=== PATIENT | female | born 1955 | race Caucasian/White ===

== ENCOUNTER 2017-07-17 10:38 | Outpatient (CLI) | payer BC | END 2017-07-17 10:39 | disposition home or self-care (01) | LOC: BICMRI 10:38 | PROVIDERS: ATTEND Anesthesiology Pain Medicine | DX: M54.81 Occipital neuralgia (principal); M46.92 Unspecified inflammatory spondylopathy, cervical region; M48.02 Spinal stenosis, cervical region; M99.81 Other biomechanical lesions of cervical region; Z98.890 Other specified postprocedural states | CPT/HCPCS: 72052 ==

== ENCOUNTER → 2017-07-17 | Outpatient (CLI) | payer BC | LOC: BICMRI 16:29 | PROVIDERS: ATTEND Anesthesiology Pain Medicine | DX: M54.81 Occipital neuralgia (principal); M99.81 Other biomechanical lesions of cervical region | CPT/HCPCS: 72141 ==

== ENCOUNTER 2019-01-11 09:16 | Outpatient (CLI) | payer BC ==
--- NOTE | 2019-01-11 11:15 | MRI ---
MRI cervical spine noncontrast: DATE: 01/11/2019 HISTORY: 63-year-old female with "M 48.02, foraminal stenosis of cervical region". Cervicalgia. COMPARISON: MRI of 07/17/2017. FINDINGS: Cervical spinal cord is normal in size and signal. No syringohydromyelia. No Chiari I malformation. N o major subluxation in cervical spine. C1-2: No high-grade central stenosis. C2-3: Normal disc space. Ankylosis of left facet joint. No DJD in right facet joint, questionable par tial ankylosis. No central stenosis or high-grade neural foraminal stenosis. C3-4: Anterior metallic plate and screws (ACDF hardware). Ankylosis of disc space. No high-grade DJD right facet joint. Ankylosis of left facet joint. Mild central spinal canal stenosis. No right neural foraminal stenosis. Mild to moderate left neural foraminal stenosis.. This left neural foramin al stenosis due to mild left uncinate process osteophytes, appears to be greater than on previous MRI. C4-5: Metallic artificial disc. Mild bilateral facet DJD. No high-grade central stenosis. No right ne ural foraminal stenosis. Mild left neural foraminal stenosis. C5-6: Metallic artificial disc. Moderate-sized bilateral uncinate processes encroach upon bilateral n eural foramina, causing bilateral moderate neural foraminal stenosis. No high-grade central stenosis. C6-7: Metallic artificial disc. Mild bilateral facet DJD. No high-grade central spinal canal stenosis . No high-grade neural foraminal stenosis despite small bilateral uncinate process osteophytes. C7-T1: Mild to moderate right facet DJD. Moderate left facet DJD. No central stenosis. No significant neural foraminal stenosis. T1-2: Imaged only on sagittal sequences. Small central disc protrusion. No high-grade central or high -grade neural foraminal stenosis. Mild to moderate bilateral facet DJD. Disc space maintained. T2-3: Imaged only on sagittal sequences. Incomplete segmentation, with partial ankylosis across disc space. Ankylosis of spinous processes and facet joints bilaterally. No high-grade central stenosis. At least some bilateral bony neural foraminal stenosis, probably moderate. T3-4: Only partially imaged on sagittal sequence, with less coverage than on previous MRI. Bilateral severe facet DJD causes chronic grade 1 anterolisthesis of T3 on T4. Probably no significant interval change overall. 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 2) metallic artificial disks at C4-5, C5-6, and C6-7. 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 4) high-grade bilateral facet osteoarthrosis at T3-4 causing chronic grade 1 spondylolisthesis at dimas t level in the upper thoracic spine. 5) ankylosis of left facet joints in the upper cervical spine at C2-3 and C3-4. 6) no high-grade central spinal canal stenosis at any level. 7) moderate bilateral neural foraminal stenosis at C5-6. 8) probably no significant interval change since 07/17/2017.
== END 2019-01-11 09:17 | disposition home or self-care (01) ==
LOC: SCSMRI 09:16
PROVIDERS: ATTEND Anesthesiology Pain Medicine
DX: M48.02 Spinal stenosis, cervical region (principal); M43.22 Fusion of spine, cervical region; M43.14 Spondylolisthesis, thoracic region; Z98.890 Other specified postprocedural states
CPT/HCPCS: 72141

== ENCOUNTER 2019-01-25 09:29 | Outpatient (CLI) | payer BC ==
--- NOTE | 2019-01-25 10:48 | MMO ---
Bilateral MAMMO Bilat Diag [facility]. CLINICAL HISTORY: Patient is 63 years old and is seen for diagnostic exam and lump or thickening in the left breast. The patient has no family history of breast cancer. The patient has no personal history of cancer. The patient has a history of bilateral mastopexy in July,, bilateral Implants in July, - REDUCED SIZE FROM 2014, bilateral Implants in 2014, bilateral Explantation in 2014 and bilateral Implants in 1992. VIEWS: The views performed were: bilateral craniocaudal; bilateral craniocaudal with tomosynthesis; bilateral mediolateral oblique; bilateral mediolateral oblique with tomosynthesis; bilateral mediolateral; bilateral mediolateral with tomosynthesis; and bilateral Implant displaced with tomosynthesis. FILMS COMPARED: The present examination has been compared to a prior imaging study performed at [facility] on 01/31/2017. This study has been interpreted with the assistance of computer-aided detection. MAMMOGRAM FINDINGS: The breasts are heterogeneously dense, which could obscure a lesion on mammography. There are no suspicious masses, suspicious calcifications, or suspicious areas of architectural distortion. Bilateral partially inflated breast implants. Interval postoperative change involving the left breast. IMPRESSION: THERE IS NO MAMMOGRAPHIC EVIDENCE OF MALIGNANCY. ANY DECISION TO BIOPSY SHOULD BE BASED ON CLINICAL ASSESSMENT. THE RESULTS OF THIS EXAM WERE SENT TO THE PATIENT. ACR BI-RADS Category 1 - Negative MAMMOGRAPHY NOTE: 1. A negative mammogram report should not delay a biopsy if a dominant of clinically suspicious mass is present. 2. Approximately 10% to 15% of breast cancers are not detected by mammography. 3. Adenosis and dense breasts may obscure an underlying neoplasm. Reported by: ARPAN KRUEGER MD Electonically Signed: [id number]
== END 2019-01-25 09:30 | disposition home or self-care (01) ==
LOC: BICMAMMO 09:29
PROVIDERS: ATTEND Psychiatry & Neurology Psychiatry
DX: N64.59 Other signs and symptoms in breast (principal); Z98.890 Other specified postprocedural states
CPT/HCPCS: 77066; G0279

== ENCOUNTER 2019-04-18 14:35 | Outpatient (CLI) | payer BC ==
--- NOTE | 2019-04-18 16:53 | RAD ---
CERVICAL SPINE WITH FLEXION AND EXTENSION OBLIQUES: 04/18/19 HISTORY: Spondylitis. COMPARISON: MRI of 01/11/19. FINDINGS: ACDF hardware and discectomy change with interbody fusion at C3-4. Artificial disc at C4-5, C5-6 and C6-7. There appears to be anterior subluxation of the C6-7 superior component of the disc prosthesis . 1 mm C2 over C3 anterolisthesis in a neutral position. There is mild translation of flexion and exten zhou at C5-6. No migration of the artificial discs. Mild osseous neural foraminal narrowing on the right at C5-6. The visualized upper ribs are intact. IMPRESSION: 1. Mild anterior translation of the C6 inferior endplate component of the artificial disc relati ve to the C7 superior end plate component. 2. Mild translation with flexion and extension at C5-6. POS: CET
== END 2019-04-18 14:36 | disposition home or self-care (01) ==
LOC: SCSRAD 14:35
PROVIDERS: ATTEND Anesthesiology Pain Medicine
DX: M46.92 Unspecified inflammatory spondylopathy, cervical region (principal)
CPT/HCPCS: 72052

== ENCOUNTER 2020-12-29 13:55 | Outpatient (CLI) | payer BC | END 2020-12-29 13:56 | disposition home or self-care (01) | LOC: ULT 13:55 | PROVIDERS: ATTEND Internal Medicine Cardiovascular Disease | DX: I47.1 Supraventricular tachycardia (principal); R07.9 Chest pain, unspecified; I08.1 Rheumatic disorders of both mitral and tricuspid valves | CPT/HCPCS: 93306 ==

== ENCOUNTER 2020-12-30 07:38 | Outpatient (CLI) | payer BC ==
[2020-12-30] MEDS ORDERED: ADENOSINE 60 MG/20 ML VIAL ONE (11:34)
== END 2020-12-30 07:39 | disposition home or self-care (01) ==
LOC: NM 07:38
PROVIDERS: ATTEND Internal Medicine Cardiovascular Disease
DX: I47.1 Supraventricular tachycardia (principal); R07.9 Chest pain, unspecified
CPT/HCPCS: 78452; 93017; A9500; J0153

== ENCOUNTER 2021-01-15 13:00 | Outpatient (CLI) | payer BC ==
[2021-01-15 14:46] LABS: INR-International Normal Ratio 0.9; PTT 24.9 sec (22.0-33.0); Prothrombin Time 10.3 sec (9.5-12.1)
[2021-01-15 14:50] LABS: Hemoglobin 13.5 g/dL (12.0-15.5); Mean Corpuscular HGB CONC 33.5 g/dL (32.0-36.0); Mean Corpuscular Hemoglobin 32.4 pg (27.0-33.0); Mean Corpuscular Volume 96.6 fl (81.6-98.3); Mean Platelet Volume 8.8 fl (7.4-10.4); Platelet Count 246 10x3/uL (150-450); Red Blood Cell (RBC) Count 4.17 10x6/uL (3.90-5.03); White Blood Cell (WBC) Count 6.1 10x3/uL (3.5-10.5)
[2021-01-15 14:56] LABS: Anion Gap 14 mmol/L (10-20); BUN (Urea Nitrogen) 17 mg/dL (9.8-20.1); Calc. Creatinine Clearance 0 mL/min (70-130); Calcium 9.7 mg/dL (7.8-10.44); Carbon Dioxide 24 mmol/L (23-31); Chloride 108 mmol/L (98-107); Glucose 86 mg/dL (80-115); Potassium 4.1 mmol/L (3.5-5.1); Sodium 142 mmol/L (136-145)
[2021-01-16 13:15] LABS: SARS-CoV-2 PCR by NAA Not Detected (NotDetected)
== END 2021-01-15 13:01 | disposition home or self-care (01) ==
LOC: LABBT 13:00
PROVIDERS: ATTEND Internal Medicine Cardiovascular Disease
DX: Z01.812 Encounter for preprocedural laboratory examination (principal); Z51.81 Encounter for therapeutic drug level monitoring; I47.1 Supraventricular tachycardia; I51.9 Heart disease, unspecified; Z79.01 Long term (current) use of anticoagulants; Z20.822 Contact with and (suspected) exposure to COVID-19
CPT/HCPCS: 80048; 85027; 85610; 85730; U0003; U0005

== ENCOUNTER 2021-01-20 06:00 | Day surgery (SDC) | payer BC ==
[2021-01-19 12:10] VITALS: BMI 23.3
[2021-01-20] MEDS ORDERED: Isoproterenol 0.2 MG/1 ML AMP ONE ×2 (06:47→07:15)
[2021-01-20] MEDS ORDERED: Heparin 25,000 units/D5W 0 ML ONE (06:47)
[2021-01-20] MEDS ORDERED: Heparin 10,000 UNITS/ 10 ML VIAL ONE (06:47)
[2021-01-20] MEDS ORDERED: DOPamine 400 MG/D5W 250 ML 0 ML ONE (06:48)
[2021-01-20] MEDS ORDERED: Fentanyl 100 MCG/2 ML VIAL ONE (06:57)
[2021-01-20] MEDS ORDERED: Phenylephrine 10 MG/ML VIAL ONE (06:58)
[2021-01-20] MEDS ORDERED: Propofol 1,000 MG/100 ML VIAL IV ONE (07:49)
[2021-01-20] MEDS ORDERED: PROPOFOL 200 MG/20 ML VIAL ONE (07:55)
[2021-01-20] MEDS ORDERED: Dexamethasone 20 MG/5 ML VIAL ONE (07:55)
[2021-01-20] MEDS ORDERED: Ondansetron PF 4 MG/2 ML Vial ONE (07:55)
[2021-01-20] MEDS ORDERED: PHENYLEPHRINE-NS 100 MCG/ML 10 ML SYRINGE ONE (07:55)
== END 2021-01-20 13:05 | disposition home or self-care (01) ==
LOC: CCL 06:00
PROVIDERS: ATTEND Internal Medicine Cardiovascular Disease
PROC: 4A023FZ Measurement of Cardiac Rhythm, Percutaneous Approach (ICD-10-PCS; principal; 2021-01-20)
PROC: 4A0234Z Measurement of Cardiac Electrical Activity, Percutaneous Approach (ICD-10-PCS; principal; 2021-01-20)
PROC: 02K83ZZ Map Conduction Mechanism, Percutaneous Approach (ICD-10-PCS; principal; 2021-01-20)
PROC: 02583ZZ Destruction of Conduction Mechanism, Percutaneous Approach (ICD-10-PCS; principal; 2021-01-20)
DX: I47.1 Supraventricular tachycardia (principal); G58.9 Mononeuropathy, unspecified; E78.5 Hyperlipidemia, unspecified; Z79.899 Other long term (current) drug therapy; Z88.6 Allergy status to analgesic agent; Z98.1 Arthrodesis status
CPT/HCPCS: 93005; 93010; 93613; 93621; 93623; 93653; C1730; C1732; J1265; J1644; J2370; J2704; J3010

== ENCOUNTER 2021-03-16 14:41 | Outpatient (CLI) | payer BC, MEDICARE | END 2021-03-16 14:42 | disposition home or self-care (01) | LOC: BICMAMMO 14:41 | PROVIDERS: ATTEND Nurse Practitioner Family | DX: Z12.31 Encounter for screening mammogram for malignant neoplasm of breast (principal); Z13.820 Encounter for screening for osteoporosis; M85.89 Other specified disorders of bone density and structure, multiple sites; Z98.82 Breast implant status | CPT/HCPCS: 77063; 77067; 77080 ==

== ENCOUNTER 2023-03-21 11:08 | Outpatient (CLI) | payer MEDICARE, BC | END 2023-03-21 11:09 | disposition home or self-care (01) | LOC: BICMRI 11:08 | PROVIDERS: ATTEND Nurse Practitioner Family | DX: M25.512 Pain in left shoulder (principal); M75.112 Incomplete rotator cuff tear or rupture of left shoulder, not specified as traumatic; M25.412 Effusion, left shoulder; M65.812 Other synovitis and tenosynovitis, left shoulder; M71.812 Other specified bursopathies, left shoulder ==

== ENCOUNTER 2024-02-14 14:10 | Outpatient (CLI) | payer MEDICARE, BC | END 2024-02-14 14:11 | disposition home or self-care (01) | LOC: RAD 14:10 | PROVIDERS: ATTEND Nurse Practitioner Family | DX: Z01.818 Encounter for other preprocedural examination (principal) | CPT/HCPCS: 71046 ==

== ENCOUNTER 2024-11-07 13:50 | Outpatient (CLI) | payer MEDICARE, BC ==
[2024-11-07 14:34] LABS: Estimated GFR - POC 60.0
== END 2024-11-07 13:51 | disposition home or self-care (01) ==
LOC: SCSMRI 13:50
PROVIDERS: ATTEND Otolaryngology Plastic Surgery within the Head & Neck
DX: H83.2X9 Labyrinthine dysfunction, unspecified ear (principal)
CPT/HCPCS: 36415; 70553; 76376; 82565 ×2; A9577